=== PATIENT | female | born 1985 | race American Indian/Alaskan Native ===

== ENCOUNTER 2020-01-06 14:49 | Emergency (ER) | payer SELFPAY ==
[2020-01-06 15:55] VITALS: BP 137/88
[2020-01-06] MEDS ORDERED: HYDROcodone/ACETAMINOPHEN 5-325 MG TAB PO STA (18:00)
--- NOTE | 2020-01-06 18:09 | Emergency Department Report ---
ED ENT HPI - General Chief complaint: Earache Stated complaint: RIGHT EAR SWOLLEN, Time Seen by Provider: 01/06/20 16:02 Source: patient Mode of arrival: Ambulatory Limitations: No Limitations - History of Present Illness Initial comments: right ear pain with swelling AND DISCHARGE FOR THE LAST FEW DAYS. MD complaint: ear pain -: Gradual, days(s) Location: R ear Severity: moderate Quality: aching, dull Consistency: constant Improves with: none Worsens with: none Associated Symptoms: discharge from ear. denies: cough, gum swelling, pain with swallowing - Related Data Previous Rx's Medication Instructions Recorded Last Taken Type Ciprofloxacin HCl [Ciprofloxacin 500 mg PO Q12HR #20 tab 01/06/20 Unknown Rx TAB] Neomy/Polymyx B/Hc (Otic) Soln 4 drops OT TID #1 bottle 01/06/20 Unknown Rx [Cortisporin (Otic) Soln] Allergies Allergy/AdvReac Type Severity Reaction Status Date / Time No Known Allergies Allergy Unverified 01/06/20 15:50 ED Dental HPI - General Chief complaint: Earache Stated complaint: RIGHT EAR SWOLLEN, Time Seen by Provider: 01/06/20 16:02 Source: patient Mode of arrival: Ambulatory Limitations: No Limitations - Related Data Previous Rx's Medication Instructions Recorded Last Taken Type Ciprofloxacin HCl [Ciprofloxacin 500 mg PO Q12HR #20 tab 01/06/20 Unknown Rx TAB] Neomy/Polymyx B/Hc (Otic) Soln 4 drops OT TID #1 bottle 01/06/20 Unknown Rx [Cortisporin (Otic) Soln] Allergies Allergy/AdvReac Type Severity Reaction Status Date / Time No Known Allergies Allergy Unverified 01/06/20 15:50 ED Review of Systems ROS: Stated complaint: RIGHT EAR SWOLLEN, Other details as noted in HPI Comment: All other systems reviewed and negative ED Past Medical Hx - Past Medical History Previous Medical History?: No - Surgical History Past Surgical History?: No - Medications Home Medications: Home Medications Medication Instructions Recorded Confirmed Last Taken Type Ciprofloxacin HCl [Ciprofloxacin 500 mg PO Q12HR #20 tab 01/06/20 Unknown Rx TAB] Neomy/Polymyx B/Hc (Otic) Soln 4 drops OT TID #1 bottle 01/06/20 Unknown Rx [Cortisporin (Otic) Soln] ED Physical Exam - General Limitations: No Limitations General appearance: alert, in no apparent distress - Head Head exam: Present: atraumatic, normocephalic - Eye Eye exam: Present: normal appearance, PERRL, EOMI Pupils: Present: normal accommodation - ENT ENT exam: Present: normal orophraynx, mucous membranes moist, TM's normal bilaterally, other (Swelling to the right ear with tragal tenderness noted. Small amount of exudate is noted and cloudy discharge.) - Neck Neck exam: Present: normal inspection, lymphadenopathy (Preauricular lymphade nopathy right tonsillar lymphadenopathy) - Respiratory Respiratory exam: Present: normal lung sounds bilaterally. Absent: respiratory distress - Cardiovascular Cardiovascular Exam: Present: regular rate, normal rhythm. Absent: systolic murmur, diastolic murmur, rubs, gallop - GI/Abdominal GI/Abdominal exam: Present: soft, normal bowel sounds - Extremities Exam Extremities exam: Present: normal inspection - Back Exam Back exam: Present: normal inspection - Neurological Exam Neurological exam: Present: alert, oriented X3 - Psychiatric Psychiatric exam: Present: normal affect, normal mood - Skin Skin exam: Present: warm, dry, intact, normal color. Absent: rash ED Course Vital Signs 01/06/20 15:52 Temperature 99.8 F H Pulse Rate 98 H Respiratory 18 Rate Blood Pressure 137/88 O2 Sat by Pulse 99 Oximetry Critical care attestation.: If time is entered above; I have spent that time in minutes in the direct care of this critically ill patient, excluding procedure time. ED Disposition Clinical Impression: Otitis externa Disposition: DC-01 TO HOME OR SELFCARE Is pt being admited?: No Does the pt Need Aspirin: No Condition: Stable Instructions: Otitis Externa (ED) Prescriptions: Ciprofloxacin HCl [Ciprofloxacin TAB] 500 mg PO Q12HR #20 tab Neomy/Polymyx B/Hc (Otic) Soln [Cortisporin (Otic) Soln] 4 drops OT TID #1 bottle Referrals: PRIMARY CARE, [Primary Care Provider] - 3-5 Days [facility] [Provider Group] - 3-5 Days
== END 2020-01-06 18:21 | disposition home or self-care (01) ==
LOC: ED 14:49
DX: H60.8X1 Other otitis externa, right ear (principal)
CPT/HCPCS: 99282